=== PATIENT | female | born 1970 | race Caucasian/White ===

== ENCOUNTER 2025-06-15 16:01 | Emergency (ER) | payer OTHER, SELFPAY ==
[2025-06-15 16:21] VITALS: BP 139/95
[2025-06-15 16:36] LABS: Hematocrit 38.9 % (37.0-47.0); Hemoglobin 12.8 g/dL (12.0-16.0); Mean Corp Hgb Conc. 32.9 g/dL (33.0-37.0); Mean Corpuscular Volume 89.4 fL (81.0-99.0); Nucleated Red Blood Cells % 0 %; Platelet Count 220 10^3/uL (130-400); Red Cell Dist. Width 14.1 % (11.5-14.5)
[2025-06-15 16:48] LABS: ALT (SGPT) 14 U/L (0-35); AST (SGOT) 12 U/L (14-36); Albumin 4.0 g/dl (3.5-5.0); Alkaline Phosphatase 80 U/L (38-126); Blood Urea Nitrogen 11 mg/dl (7-17); Calcium 9.0 mg/dl (8.4-10.2); Carbon Dioxide 25 mmol/L (22-30); Chloride 107 mmol/L (98-107); Glucose 103 mg/dl (70-99); Lipase 440 U/L (23-300); Potassium 3.8 mmol/L (3.5-5.1); Sodium 138 mmol/L (135-145); Total Protein 7.0 g/dl (6.3-8.2); eGFR > 60.00
[2025-06-15 20:05] VITALS: BP 140/71
--- NOTE | 2025-06-15 20:05 | ED.GENMED ---
History of Present Illness
General
Chief Complaint: Abnormal Lab Value
Source: patient
Exam Limitations: none
Time Seen by Provider: 06/15/25 19:50
History of Present Illness
History of Present Illness:
Patient had blood work scheduled since December. She was feeling slightly off last week. She had her blood work on Saturday. Apparently had a 15,000 white count and was sent to the ER for evaluation. She has some mild epigastric symptoms associated
with her pancreatitis but this is chronic and stable. She has no nausea or vomiting. No bloody stools. No urinary symptoms. No cough or shortness of breath. No sore throat. No unusual rash. No other infectious symptoms.
Past History
Past History
ED Past Medical History: Other (Lupus with crest syndrome pancreatitis kidney stones)
ED Past Surgical History: Cholecystectomy
Social History
Tobacco: Smoker
Alcohol: None
Drug: None
Personal:
Living: with family
Employment: Employed
Family History
Family History: Other (Noncontributory)
Review of Systems
Review of Systems
All Other Systems: Not applicable
Respiratory: Reports no symptoms
: Reports no symptoms
Phy Exam
Physical Exam
Physical Exam:
GENERAL: Alert and oriented in no apparent distress
EYE: Orbits normal.
NECK: Supple, no significant adenopathy.
ENT: Pharynx without erythema
CARDIAC: Regular rate and rhythm without any obvious murmurs.
LUNGS: Clear breath sounds,normal
ABDOMEN: Soft, very minimal epigastric tenderness. No rebound or guarding no mass or hernia. No CVA tenderness
NEUROLOGICAL: Alert and oriented , grossly non-focal
SKIN: Warm and dry, no rash or lesion, no discoloration, skin intact.
MUSCULOSKELETAL: No edema,no deformity.Good color
PSYCH: Normal and appropriate interaction.
Course
Orders/Labs/Results
Orders:
Orders
06/15/25 16:27
Complete Blood Count/With Diff Urgent
Comprehensive Metabolic Panel Urgent
Lactate Level [Lactic Acid] Urgent
Lipase Urgent
Abnormal Lab Results
06/15/25
16:27
MCHC 32.9 L g/dL
(33.0-37.0)
Glucose 103 H mg/dl
(70-99)
AST 12 L U/L
(14-36)
Lipase 440 H U/L
(23-300)
06/15/25 16:27
06/15/25 16:27
Vital Signs
Initial and Last Documented VS:
Initial Vital Signs
Temp Pulse Resp BP Pulse Ox
98.5 F 84 17 139/95 98
06/15/25 16:21 06/15/25 16:21 06/15/25 16:21 06/15/25 16:21 06/15/25 16:21
Last Documented Vital Signs
Temp Pulse Resp BP Pulse Ox
98.5 F 69 17 140/71 98
06/15/25 16:21 06/15/25 20:05 06/15/25 20:05 06/15/25 20:05 06/15/25 20:10
*Pulse Oximetry
SaO2: 98
Oxygen Mode of Delivery: Room air
Patient hypoxic: no
*Critical Care Note
Total Time (30-74mins, 75-104mins- exclusive of procedures): Not Applicable
Data Reviewed
Review of Other/Old Records Reveals: Labs, Records and Testing
ED Attending Note
ED Attending Note
Patient seen and examined by attending physician: Yes
I performed the substantive portion of visit, reviewed & personally made and approve the management plan that is documented in note by myself or ANH.: Yes
ED Attending Note:
54-year-old female with a leukocytosis to 15,003 days ago. Was told to get evaluated. Currently is feeling basically at her baseline. She has some mild recurring epigastric discomfort that she has had chronically that she feels is related to her
pancreatitis. She denies fever chills cough chest pain shortness of breath urinary symptoms. Her white count is resolved. Her lipase is minimally and nonspecifically elevated. She has a nonsurgical abdomen. She had a urine done 4 days ago that
was negative and has no UTI symptoms. Discussed options of further workup for this transient leukocytosis including CT scan and repeat urine versus discharge follow-up. She would prefer the latter. I feel this is reasonable given all of the above.
-
Portions of this chart may have been created with voice recognition software.� Occasional wrong word or��sound alike� substitutions may have occurred due to the inherent limitations of voice recognition software.
Discharge Plan
Departure
Patient Disposition: Home (Routine Discharge)
Date of Disposition: 06/15/25
Time of Disposition: 20:09
Patient with high blood pressure during this ER visit?: Yes
Discharge Problem:
Transient leukocytosis, History of lupus/pancreatitis
Instructions: BLOOD PRESSURE
Prescriptions:
No Action
losartan 50 MG tablet
50 mg PO HS
bisacodyl [OneLAX Bisacodyl] 10 MG suppository
10 mg [place] DAILYPRN PRN (Reason: constipation) 7 Days Qty: 7 0RF
amlodipine 5 mg Tablet
5 mg PO HS
oxycodone-acetaminophen 5-325 mg Tablet
1 tab PO Q6H PRN (Reason: pain)
ondansetron 4 mg Tablet,Disintegrating
4 mg PO Q6H PRN (Reason: nausea)
mycophenolate sodium [Myfortic] 180 mg Tablet,Delayed Release (Dr/Ec)
360 mg PO BID
hydroxychloroquine 100 mg Tablet
100 mg PO HS
tamsulosin [Flomax] 0.4 mg capsule
0.4 mg PO HS
Rx Instructions:
Take at bedtime to aid in passing kidney stone
tramadol 50 mg Tablet
50 mg PO TID PRN (Reason: pain)
cimetidine [Tagamet] 200 mg Tablet
200 mg PO AC
Patient Comments:
as needed
Activity Restrictions/Additional Instructions:
Call your physicians tomorrow for close follow-up
Return with any progression of symptoms or new symptoms including worsening abdominal pain fever urinary symptoms respiratory symptoms unusual rash etc.
Interventions
Interventions:
*Risk Screen - Suicide Last Done: 06/15/25 16:23
*General Assessment Last Done: 06/15/25 16:23
*Neglect/Abuse Screening Last Done: 06/15/25 16:23
*ED- Fall Risk Assessment Last Done: 06/15/25 20:06
*ED COVID-19 Vaccine History Last Done: 06/15/25 16:23
*Nursing Disposition Last Done: 06/15/25 20:23
Discharge Date and Time
Discharge Date/Time: 06/15/25 20:24
Print Language: MALAY
== END 2025-06-15 20:24 | disposition home or self-care (01) ==
LOC: EMR 16:01
PROVIDERS: Student in an Organized Health Care Education/Training Program; EMERGENCY PHYSICIAN Emergency Medicine; FAMILY PHYSICIAN Family Medicine
DX: D72.829 Elevated white blood cell count, unspecified (principal); R10.13 Epigastric pain; F17.200 Nicotine dependence, unspecified, uncomplicated; Z86.39 Personal history of other endocrine, nutritional and metabolic disease
CPT/HCPCS: 99283; 80053; 83605; 83690; 85025